=== PATIENT | female | born 1985 | race Two or more races ===

== ENCOUNTER 2018-07-28 01:48 | Emergency (ER) | payer SELFPAY ==
[~2018-07-28] VITALS: Ht 157.5 cm; Wt 66.7 kg
[2018-07-28 02:02] VITALS: BP 144/90
[2018-07-28 08:03] LABS: Urine Bacteria FEW /hpf (None Seen); Urine Blood TRACE /uL (Negative); Urine Specific Gravity 1.006 (1.001-1.035); Urine WBC 11 /hpf (0 - 5)
== END 2018-07-28 06:05 | disposition left against medical advice (07) ==
LOC: ER 01:51
DX: M25.511 Pain in right shoulder (principal); M54.2 Cervicalgia; R20.0 Anesthesia of skin; R73.9 Hyperglycemia, unspecified; Z53.21 Procedure and treatment not carried out due to patient leaving prior to being seen by health care provider
CPT/HCPCS: 70450; 72125; 73030; 81001; 81025; 82962